=== PATIENT | female | born 1960 | race Caucasian/White ===

== ENCOUNTER 2022-11-16 15:49 | Outpatient (CLI) | payer BC, SELFPAY ==
--- NOTE | 2022-11-16 16:03 | XR_ITS ---
WS: [id number] XR knee RT 3V* [id number] REASON FOR EXAM: PAIN IN RIGHT KNEE FINDINGS: No fracture. 2 areas of focal lucency in the subarticular femur near the midline. These are felt to b e cystic areas i.e. geodes, a secondary to degenerative change. Mild narrowing of the medial knee joint space with mild subchondral sclerosis and small osteophytosis . Lateral knee joint spaces intact and relatively well-preserved. The patellofemoral joint space is intact and appears somewhat narrowed. There is moderate subchondral sclerosis and moderate osteophytosis of the patella. Equivocal findings for joint effusion. XR/XR knee RT 3V* [id number] IMPRESSION: Mild to moderate osteoarthritis of the right knee as above.
--- NOTE | 2022-11-16 16:03 | XR_ITS ---
WS: [id number] XR knee LT 3V* [id number] REASON FOR EXAM: PAIN IN RIGHT KNEE FINDINGS: Possible small knee joint effusion. There is mild narrowing of the medial knee joint space with mild subchondral sclerosis and mild osteo phytosis. Lateral knee joint space is intact and well preserved. Patellofemoral joint space is intact. Moderate subchondral sclerosis and osteophytosis of the patella . XR/XR knee LT 3V* [id number] IMPRESSION: Mild/moderate osteoarthritis of the left knee.
== END 2022-11-16 15:50 | disposition home or self-care (01) ==
PROVIDERS: PCP Family Medicine; Visit Provider Family Medicine
DX: M25.561 Pain in right knee (principal); M17.0 Bilateral primary osteoarthritis of knee
CPT/HCPCS: 73562

== ENCOUNTER 2022-12-13 12:55 | Outpatient (CLI) | payer BC, SELFPAY ==
--- NOTE | 2022-12-13 13:03 | MM_ITS ---
WS: [id number] BILATERAL 3D TOMOSYNTHESIS DIGITAL SCREENING MAMMOGRAPHY WITH CAD CLINICAL INFORMATION: SCREENING HISTORY: Screening mammogram. No current complaints. COMPARISON: 2020 TECHNIQUE: Bilateral CC and MLO views. FINDINGS: Scattered fibroglandular densities bilaterally. No suspicious focal mass, asymmetry, calcifications, or architectural distortion. No evidence of malignancy. Incidental punctate calcifications. MM/[place] [id number] IMPRESSION: BI-RADS: 2-Benign FOLLOW UP: 1 Year Follow-up Recommend return to annual screening mammography.
== END 2022-12-13 12:56 | disposition home or self-care (01) ==
LOC: RAD 12:58
PROVIDERS: PCP Family Medicine; Visit Provider Family Medicine
DX: Z12.31 Encounter for screening mammogram for malignant neoplasm of breast (principal)
CPT/HCPCS: 77063; 77067

== ENCOUNTER 2023-02-21 08:32 | Outpatient (RCR) | payer BC, SELFPAY | END 2023-03-15 23:59 | disposition home or self-care (01) | LOC: SPT 08:32 | PROVIDERS: PCP Family Medicine; Visit Provider Family Medicine | DX: M25.561 Pain in right knee (principal) | CPT/HCPCS: 97110; 97161 ==

== ENCOUNTER 2023-03-16 06:00 | Outpatient (RCR) | payer BC, SELFPAY | END 2023-03-20 23:59 | disposition home or self-care (01) | LOC: SPT 06:00 | PROVIDERS: PCP Family Medicine; Visit Provider Family Medicine | DX: M25.561 Pain in right knee (principal) | CPT/HCPCS: 97110 ==

== ENCOUNTER 2023-12-24 10:06 | Outpatient (CLI) | payer BC, SELFPAY ==
--- NOTE | 2023-12-24 10:13 | MM_ITS ---
WS: [id number] BILATERAL SCREENING DIGITAL TOMOSYNTHESIS MAMMOGRAM WITH CAD HISTORY: SCREENING COMPARISON: 12/13/2022, 06/14/2021 Bilateral CC and MLO views with tomosynthesis and synthetic mammography submitted. Computer aided det ection analyzed. Breast composition: There are scattered areas of fibroglandular density. No suspicious masses, microc alcifications or architectural distortion. Benign calcification in the central RIGHT breast. MM/[place] [id number] IMPRESSION: BI-RADS: 2-Benign FOLLOW UP: 1 Year Follow-up
== END 2023-12-24 10:07 | disposition home or self-care (01) ==
LOC: RAD 10:06
PROVIDERS: PCP Family Medicine; Visit Provider Family Medicine
DX: Z12.31 Encounter for screening mammogram for malignant neoplasm of breast (principal); R92.323 Mammographic fibroglandular density, bilateral breasts; R92.1 Mammographic calcification found on diagnostic imaging of breast
CPT/HCPCS: 77063; 77067

== ENCOUNTER 2024-01-24 07:57 | Outpatient (CLI) | payer BC, SELFPAY ==
--- NOTE | 2024-01-24 08:19 | NM_ITS ---
WS: [email or web address] EXAMINATION: NM parathyroid 16034 ORDER DATE: 01/24/2024 8:10 AM COMPARISON: None HISTORY: HYPERPARATHYROIDISM TECHNIQUE: Parathyroid scintigraphy with 18.2 mCi of technetium 99m administered. AP and oblique view s obtained with and without chin and suprasternal notch markers. Initial and 2 hour delayed imaging a cquired. FINDINGS: Normal homogeneous thyroid and submandibular uptake on the initial imaging. Normal thyroid washout on the delayed imaging. No suspicious foci of retained activity to indicate parathyroid adenoma. No oth er suspicious findings. NM/NM parathyroid 41040 IMPRESSION: 1. No evidence of parathyroid adenoma
== END 2024-01-24 07:58 | disposition home or self-care (01) ==
PROVIDERS: PCP Family Medicine; Visit Provider Family Medicine
DX: E21.3 Hyperparathyroidism, unspecified (principal)
CPT/HCPCS: 78070; A9500

== ENCOUNTER 2024-03-04 08:21 | Day surgery (SDC) | payer BC, SELFPAY ==
[2024-03-04 08:38] VITALS: BP 146/100; PULSE 78; RESP 18; TEMP 36.8; O2SAT 95; BMI 31.8
--- NOTE | 2024-03-04 08:46 | P.HPUD_ITS ---
Surgery/Procedure H&P Update DATE OF PROCEDURE: March 04, 2024 DATE H&P PERFORMED: 02/22/24 H&P UPDATE INFORMATION: I have reviewed H&P completed within last 30 days, I have examined patient prior to procedure, No changes to prior documentation and H&P is in [facility] E[place] on date indicated PLANNED PROCEDURE: Operation Date: 03/04/24 09:20 Proposed Procedures p Colonoscopy 90439, G0121, Z12.11(Not Applicable) - Reinier Hartmann MD
--- NOTE | 2024-03-04 08:46 | W.PM.OPSUD ---
Surgery/Procedure H&P Update DATE OF PROCEDURE: March 04, 2024 DATE H&P PERFORMED: 02/22/24 H&P UPDATE INFORMATION: I have reviewed H&P completed within last 30 days, I have examined patient prior to procedure, No changes to prior documentation and H&P is in [facility] EMR on date indicated PLANNED PROCEDURE: Operation Date: 03/04/24 09:20 Proposed Procedures p Colonoscopy 05251, G0121, Z12.11(Not Applicable) - Reinier Hartmann MD
[2024-03-04] MEDS: sodium chloride 0.9% 1,000 ML 30 ML IV (08:50)
--- NOTE | 2024-03-04 09:02 | ANES.PREANE2 ---
Pre-Anesthetic Assessment Height/Weight: Height 1.6 m Weight 81.647 kg Temp Pulse Resp BP Pulse Ox O2 Del Method 98.2 F 78 18 146/100 95 Room Air 03/04/24 08:38 03/04/24 08:38 03/04/24 08:38 03/04/24 08:38 03/04/24 08:38 03/04/24 08:38 Operation Date: 03/04/24 09:20 Proposed Procedures p Colonoscopy 15936, G0121, Z12.11(Not Applicable) - Reinier Hartmann MD Familial anesthetic complications: None Was Beta Aubrey taken within 24 hours: N/A Was Clonidine taken within 24 hours: N/A Last intake: Intake Last Liquid Date 03/04/24 Last Liquid Time 00:05 Last Solid Date 03/02/24 Last Solid Time 23:30 Social No alcohol and No tobacco Exam alert, oriented x 3, clear to auscultation bilaterally and regular rate & rhythm Airway Mallampati: Class I Dentition: full CV/HEM Hypertension GI Gastroesophageal Reflux Disease Anesthetic Plan ASA status: 2 Anesthesia: MAC Risk of > 500 ml blood loss (7ml/kg in children): No Medications/Allergies Home Medications Medication Instructions Recorded Confirmed Last Taken Type apple cider vinegar 300 mg tablet 300 mg PO DAILY 02/22/24 03/04/24 03/03/24 History ascorbic acid (vitamin C) 1,000 mg 1 g PO DAILY 02/22/24 03/04/24 03/03/24 History capsule multivitamin 1 tab PO DAILY 02/22/24 03/04/24 03/03/24 History omeprazole 20 mg capsule,delayed 20 mg PO DAILY 02/22/24 03/04/24 03/03/24 History release triamterene 37.5 1 tab PO DAILY 02/22/24 03/04/24 03/03/24 History mg-hydrochlorothiazide 25 mg tablet Allergies Allergy/AdvReac Type Severity Reaction Status Date / Time hydrocodone Allergy Unknown Verified 03/04/24 08:36 morphine Allergy ADR-Halluci Verified 03/04/24 08:36 nating guaiacsulfonate Allergy ADR-Halluci Uncoded 03/04/24 08:36 nating Current Medications Generic Name Dose Route Start Last Admin Trade Name Freq PRN Reason Stop Dose Admin Sodium Chloride 1,000 mls @ 30 mls/hr 03/04/24 08:30 03/04/24 08:50 Sodium Chloride 0.9% IV 30 mls/hr .Q24H RADHA Administration PFSH Anesthesia Social History (Updated 02/22/24 @ 09:26 by AMANDA Sue) Smoking and tobacco/nicotine status: never used tobacco/nicotine Alcohol intake: never Data Anesthesia Cardiac Studies: No Data to Display
[2024-03-04 09:57] VITALS: BP 139/79; PULSE 67; RESP 18; TEMP 36.2; O2SAT 96
[2024-03-04 10:08] VITALS: BP 128/80; PULSE 68; RESP 18; O2SAT 98
[2024-03-04 10:20] VITALS: BP 144/85; PULSE 65; RESP 18; O2SAT 100
--- NOTE | 2024-03-04 10:46 | ANE.PACU2 ---
Inpatient post-anesthesia follow up: Airway intact: Yes Vital signs: Temperature 97.2 F Pulse Rate 65 Respiratory Rate 18 Blood Pressure 144/85 Pulse Oximetry 100 Oxygen Delivery Me thod Room Air Oxygen Flow Rate Fraction of Inspir ed Oxygen Hydration adequate: Yes Nausea and vomiting: No Pain level: 1 Mental status: Baseline
== END 2024-03-04 10:46 | disposition home or self-care (01) ==
PROVIDERS: PCP Family Medicine; Visit Provider Surgery
PROC: 0DJD8ZZ Inspection of Lower Intestinal Tract, Via Natural or Artificial Opening Endoscopic (ICD-10-PCS; CPT 45378; principal; 2024-03-04 09:20)
DX: Z12.11 Encounter for screening for malignant neoplasm of colon (principal); D12.5 Benign neoplasm of sigmoid colon; I10 Essential (primary) hypertension; K21.9 Gastro-esophageal reflux disease without esophagitis
CPT/HCPCS: 45380; 45385; 88305; J2704; J7030

== ENCOUNTER 2024-12-15 04:18 | Emergency (ER) | payer BC, SELFPAY ==
[2024-12-15 04:27] VITALS: BP 171/88; PULSE 77; RESP 16; TEMP 36.3; O2SAT 97; BMI 33.3
--- NOTE | 2024-12-15 05:06 | XRR_ITS ---
PROCEDURE INFORMATION: Exam: XR Chest Exam date and time: 12/15/2024 5:06 AM Age: 64 years old Clinical indication: Chest pressure; C/O chest pain; Additional info: Cp TECHNIQUE: Imaging protocol: Radiologic exam of the chest. Views: 1 view. COMPARISON: NM parathyroid [id number] 01/24/2024 8:19 AM FINDINGS: Lungs: Unremarkable. No consolidation. Pleural spaces: Unremarkable. No pleural effusion. No pneumothorax. Heart/Mediastinum: The heart is borderline enlarged. There is calcified plaque involving the aorta. Bones/joints: Unremarkable. XR/XR chest 1V portable [id number] IMPRESSION: 1. Borderline cardiomegaly.
[2024-12-15 05:14] LABS: Basophils # 0.1 10^3/uL (0.0-0.1); Basophils % 0.8 %; Eosinophils # 0.1 10^3/uL (0.0-0.8); Eosinophils % 1.5 %; Hematocrit 43.3 % (36-47); Lymphocytes # 1.4 10^3/uL (0.8-4.8); Lymphocytes % 21.4 %; Mean Corpuscular HGB Conc 34.6 g/dL (30-55); Mean Corpuscular Hemoglobin 28.4 pg (27-33); Mean Corpuscular Volume 81.9 fl (85-98); Mean Platelet Volume 10.1 fL (7.4-10.4); Monocytes # 0.6 10^3/uL (0.2-0.9); Monocytes % 8.9 %; Neutrophils # 4.46 10^3/uL (1.8-7.7); Neutrophils % 67.1 %; Nucleated Red Blood Cells % 0 %; Platelet Count 217 10^3/cmm (157-399); Red Blood Count 5.29 10^6/uL (3.85-5.65); Red Cell Distribution Width 13.9 % (12.1-15.1); White Blood Count 6.64 10^3/uL (3.29-11.43)
--- NOTE | 2024-12-15 05:20 | W.ED.BACK ---
Documented by User: Andrea Jose DO 12/18/24 08:34 HPI - Back Pain/Injury General: Chief Complaint: Back Pain/Injury Stated Complaint: Lower back Pain to Front Time Seen by Provider: 12/15/24 04:52 History of Present Illness: 64-year-old female with no prior history of coronary disease. She complains mainly of right sided mid back pain that wraps around to the front. It has spread to the left to some degree, but worse on the right. She was seen in the clinic 2 days ago, diagnosed with a muscle strain, and told to get topical patches which have not helped. She was not able to sleep last night. She has been nauseated. Not short of breath. No fever. No vomiting or diarrhea. Only surgical history is oophorectomy. No history of cholecystectomy, etc. No history of heart disease. Related Data Home Medications ?Medication ?Instructions ?Recorded ?Confirmed apple cider vinegar 300 mg tablet 300 mg PO DAILY 02/22/24 12/15/24 ascorbic acid (vitamin C) 1,000 mg 1 g PO DAILY 02/22/24 12/15/24 capsule multivitamin 1 tab PO DAILY 02/22/24 12/15/24 omeprazole 20 mg capsule,delayed 20 mg PO DAILY 02/22/24 12/15/24 release triamterene 37.5 1 tab PO DAILY 02/22/24 12/15/24 mg-hydrochlorothiazide 25 mg tablet prednisone 10 mg tablet See Rx Instructions .Route .COMPLEX 12/15/24 12/15/24 Previous Rx's ?Medication ?Instructions ?Recorded cyclobenzaprine 10 mg tablet 10 mg PO Q8H #10 tabs 12/15/24 ketorolac 10 mg tablet 10 mg PO TID PRN pain #10 tabs 12/15/24 Allergies Allergy/AdvReac Type Severity Reaction Status Date / Time hydrocodone Allergy Unknown Verified 04/02/24 09:24 morphine Allergy ADR-Halluci Verified 04/02/24 09:24 natvanessa guaiacsulfonate Allergy ADR-Halluci Uncoded 04/02/24 09:24 rosie [facility] ED PFSH: Social History Smoking and tobacco/nicotine status: never used tobacco/nicotine Alcohol intake: never Physical Exam Const: COMMON NORMALS: no acute distress GENERAL APPEARANCE: cooperative; not ill appearing and not frail appearing HENMT: COMMON NORMALS: normocephalic, atraumatic and Normal external nose present HEAD & SCALP: normocephalic and atraumatic FACE & SINUS: normal facial exam and face symmetric NOSE: Normal external nose present Eye: COMMON NORMALS: Equal, round and reactive pupils present and EOMs intact bilaterally PUPIL: Yes Equal, round and reactive pupils present Neck/C-Spine: GENERAL: Yes trachea midline Chest: CHEST: Yes Symmetrical chest wall rise Resp: COMMON NORMALS: normal respiratory effort, No retractions, No use of accessory muscles and clear to auscultation bilaterally AUSCULTATION: clear to auscultation bilaterally Cardio: COMMON NORMALS: regular rate and regular rhythm RATE: regular rate RHYTHM: regular rhythm GI: COMMON NORMALS: Normal to inspection, nondistended, normoactive bowel sounds present Extremity: COMMON NORMALS: no pedal edema Neuro: NATASHA COMA SCALE: document GCS findings [place] coma scale eye opening: Spontaneous [place] coma scale verbal response: Orientated Natasha coma scale motor response: Obey commands [place] coma scale total score: 15 SENSORY EXAM: Yes extremities (intact) Psych: COMMON NORMALS: speech normal SPEECH: Yes normal speech Skin: COMMON NORMALS: no rashes or lesions noted GENERAL SKIN EXAM: no rashes or lesions noted Course Vital Signs: Vital signs: Vital Signs Temperature 97.4 F L 12/15/24 04:27 Pulse Rate 76 12/15/24 08:36 Respiratory Rate 16 12/15/24 05:22 Blood Pressure 168/86 12/15/24 08:36 Pulse Oximetry 97 12/15/24 08:36 Oxygen Delivery Me thod Room Air 12/15/24 04:27 MDM - Back Pain/Injury Medical Decision Making Pain not fully reproducible on exam. She is nontachycardic, nonhypoxic. CBC is normal. Potassium is 3.1. Lipase is normal at 35. CRP is only 3.8. Liver enzymes are normal. Potassium is repleted. Ultrasound of the gallbladder is ordered, and shows some gallbladder sludge, with normal bile ducts, no stones, and no signs of cholecystitis. Pain is improved after administration of small dose of fentanyl, and Zofran. Urinalysis is pending. If urinalysis is negative, she will be treated for musculoskeletal pain. To return for any worsening symptoms. Labs 12/15/24 05:06 12/15/24 05:06 Radiology Impressions Chest X-Ray 12/15/24 05:06 IMPRESSION: 1. Borderline cardiomegaly. Gallbladder Ultrasound 12/15/24 05:33 IMPRESSION: 1. Possible minimal sludge layering within the gallbladder. Laboratory Results WBC 6.64 10^3/uL (3.29-11.43) 12/15/24 05:06 RBC 5.29 10^6/uL (3.85-5.65) 12/15/24 05:06 Hgb 15.00 g/dL (11.27-16.99) 12/15/24 05:06 Hct 43.3 % (36-47) 12/15/24 05:06 MCV 81.9 fl (85-98) L 12/15/24 05:06 MCH 28.4 pg (27-33) 12/15/24 05:06 MCHC 34.6 g/dL (30-55) 12/15/24 05:06 RDW 13.9 % (12.1-15.1) 12/15/24 05:06 Plt Count 217 10^3/cmm (157-399) 12/15/24 05:06 MPV 10.1 fL (7.4-10.4) 12/15/24 05:06 Neut % (Auto) 67.1 % 12/15/24 05:06 Lymph % (Auto) 21.4 % 12/15/24 05:06 [place] % (Auto) 8.9 % 12/15/24 05:06 Eos % (Auto) 1.5 % 12/15/24 05:06 Baso % (Auto) 0.8 % 12/15/24 05:06 Neut # (Auto) 4.46 10^3/uL (1.8-7.7) 12/15/24 05:06 Lymph # (Auto) 1.4 10^3/uL (0.8-4.8) 12/15/24 05:06 [place] # (Auto) 0.6 10^3/uL (0.2-0.9) 12/15/24 05:06 Eos # (Auto) 0.1 10^3/uL (0.0-0.8) 12/15/24 05:06 Baso # (Auto) 0.1 10^3/uL (0.0-0.1) 12/15/24 05:06 Nucleated RBC % (auto) 0 % 12/15/24 05:06 Nucleated RBCs # 0.0 /100WBC 12/15/24 05:06 Sodium 129 mmol/L (136-145) L 12/15/24 05:06 Potassium 3.1 mmol/L (3.5-5.1) L 12/15/24 05:06 Chloride 91 mmol/L (98-107) L 12/15/24 05:06 Carbon Dioxide 26 mmol/L (22-29) 12/15/24 05:06 Anion Gap 15.1 (5-19) 12/15/24 05:06 BUN 12 mg/dL (8-23) 12/15/24 05:06 Creatinine 0.5 mg/dL (0.5-0.9) 12/15/24 05:06 GFR Calculation 124.2 mL/min (90-130) 12/15/24 05:06 Glucose 100 mg/dL (65-115) 12/15/24 05:06 Calculated Osmolality 268 mOsm/kg (285-295) L 12/15/24 05:06 Calcium 10.1 mg/dL (8.5-10.5) 12/15/24 05:06 Total Bilirubin 0.6 mg/dL (0.15-1.2) 12/15/24 05:06 AST 25 U/L (0-32) 12/15/24 05:06 ALT 26 U/L (0-33) 12/15/24 05:06 Alkaline Phosphatase 99 U/L (35-105) 12/15/24 05:06 Troponin T Baseline 7 ng/L (0-10) 12/15/24 05:06 Troponin T 120 Minute 11.53 ng/L (0-10) H 12/15/24 06:58 Delta Troponin T 4.53 ABS# (0-10) 12/15/24 06:58 C-Reactive Protein 3.8 mg/L (0.0-4.9) 12/15/24 05:06 Total Protein 7.2 g/dL (6.6-8.7) 12/15/24 05:06 Albumin 4.6 g/dL (3.5-5.2) 12/15/24 05:06 Globulin 2.6 g/dL (1.3-4.6) 12/15/24 05:06 Lipase 35 U/L (13-60) 12/15/24 05:06 Urine Color Yellow (Yellow) 12/15/24 07:05 Urine Appearance Clear (CLEAR) 12/15/24 07:05 Urine pH 6.5 (5-7) 12/15/24 07:05 Ur Specific [place] 1.016 (1.005-1.030) 12/15/24 07:05 Urine Protein Negative (Negative) 12/15/24 07:05 Urine Glucose (UA) Negative (Normal) 12/15/24 07:05 Urine Ketones 2+ (Negative) H 12/15/24 07:05 Urine Blood Negative (Negative) 12/15/24 07:05 Urine Nitrate Negative (Negative) 12/15/24 07:05 Urine Bilirubin Negative (Negative) 12/15/24 07:05 Urine Urobilinogen 0.2 mg/dL (Negative) 12/15/24 07:05 Ur Leukocyte Esterase Negative (Negative) 12/15/24 07:05 Urine RBC 0-2 /hpf (0-2) 12/15/24 07:05 Urine WBC 0-5 /hpf (0-5) 12/15/24 07:05 Ur Squamous Epith Cells 0-5 /hpf (0-5) 12/15/24 07:05 Amorphous Sediment Not Reportable 12/15/24 07:05 Urine Bacteria None seen /hpf (NONE) 12/15/24 07:05 Hyaline Casts 1.21 /lpf 12/15/24 07:05 All radiology interpretation(s) finalized by discharge Discharge Plan Discharge Patient Disposition: Home Clinical Impression: Thoracic back pain, Acute right flank pain Condition: Stable Prescriptions: New ketorolac 10 mg tablet 10 mg PO TID PRN (Reason: pain) Qty: 10 0RF cyclobenzaprine 10 mg tablet 10 mg PO Q8H Qty: 10 0RF No Action triamterene-hydrochlorothiazid 37.5-25 mg tablet 1 tab PO DAILY omeprazole 20 mg capsule,delayed release(DR/EC) 20 mg PO DAILY ascorbic acid (vitamin C) 1,000 mg capsule 1 g PO DAILY multivitamin Tablet 1 tab PO DAILY apple cider vinegar 300 mg tablet 300 mg PO DAILY prednisone 10 mg tablet See Rx Instructions .ROUTE .COMPLEX Rx Instructions: TAKE 2 TABLETS BY MOUTH ONCE DAILY FOR 4 DAYS AND 1 ONCE DAILY FOR 4 DAYS. Discharge Orders: Discharge ED (Routine); Ordered 12/15/24 Ordered By: Burt Winston Patient Instructions: Renal Colic (ED), Opioid Safety, Pain Management Activity Restrictions/Additional Instructions: Return for worsening pain despite treatment, fever greater than 100, vomiting liquids or medications, worsening shortness of breath, any other concerning symptoms. Call your doctor later today for follow-up appointment. Print Language: Togolese Sign Out Sign Out Data: Patient Sign Out occurred on 12/15/24 at 06:32. Patient's care was discussed, and care was transferred from Andrea Jose DO to Burt Wniston DO. Coding Level of Care Code ED [employer] Field Technician for Chg Fwd Documented by User: Burt Winston DO 12/15/24 09:09 HPI - Back Pain/Injury General: Chief Complaint: Back Pain/Injury Stated Complaint: Lower back Pain to Front Time Seen by Provider: 12/15/24 04:52 Related Data Home Medications ?Medication ?Instructions ?Recorded ?Confirmed apple cider vinegar 300 mg tablet 300 mg PO DAILY 02/22/24 12/15/24 ascorbic acid (vitamin C) 1,000 mg 1 g PO DAILY 02/22/24 12/15/24 capsule multivitamin 1 tab PO DAILY 02/22/24 12/15/24 omeprazole 20 mg capsule,delayed 20 mg PO DAILY 02/22/24 12/15/24 release triamterene 37.5 1 tab PO DAILY 02/22/24 12/15/24 mg-hydrochlorothiazide 25 mg tablet prednisone 10 mg tablet See Rx Instructions .Route .COMPLEX 12/15/24 12/15/24 Previous Rx's ?Medication ?Instructions ?Recorded cyclobenzaprine 10 mg tablet 10 mg PO Q8H #10 tabs 12/15/24 ketorolac 10 mg tablet 10 mg PO TID PRN pain #10 tabs 12/15/24 Allergies Allergy/AdvReac Type Severity Reaction Status Date / Time hydrocodone Allergy Unknown Verified 04/02/24 09:24 morphine Allergy ADR-Halluci Verified 04/02/24 09:24 nating guaiacsulfonate Allergy ADR-Halluci Uncoded 04/02/24 09:24 nating [facility] ED PFSH: Social History Smoking and tobacco/nicotine status: never used tobacco/nicotine Alcohol intake: never Physical Exam Neuro: NATASHA COMA SCALE: document GCS findings [place] coma scale total score: 15 Course Vital Signs: Vital signs: Vital Signs Temperature 97.4 F L 12/15/24 04:27 Pulse Rate 76 12/15/24 08:36 Respiratory Rate 16 12/15/24 05:22 Blood Pressure 168/86 12/15/24 08:36 Pulse Oximetry 97 12/15/24 08:36 Oxygen Delivery Me thod Room Air 12/15/24 04:27 MDM - Back Pain/Injury Medical Decision Making Pain not fully reproducible on exam. She is nontachycardic, nonhypoxic. CBC is normal. Potassium is 3.1. Lipase is normal at 35. CRP is only 3.8. Liver enzymes are normal. Potassium is repleted. Ultrasound of the gallbladder is ordered, and shows some gallbladder sludge, with normal bile ducts, no stones, and no signs of cholecystitis. Pain is improved after administration of small dose of fentanyl, and Zofran. Urinalysis is pending. If urinalysis is negative, she will be treated for musculoskeletal pain. To return for any worsening symptoms. Care assumed at change of shift patient's UA is unremarkable discharge patient home return if has further problems. Labs 12/15/24 05:06 12/15/24 05:06 Radiology Impressions Chest X-Ray 12/15/24 05:06 IMPRESSION: 1. Borderline cardiomegaly. Gallbladder Ultrasound 12/15/24 05:33 IMPRESSION: 1. Possible minimal sludge layering within the gallbladder. Laboratory Results WBC 6.64 10^3/uL (3.29-11.43) 12/15/24 05:06 RBC 5.29 10^6/uL (3.85-5.65) 12/15/24 05:06 Hgb 15.00 g/dL (11.27-16.99) 12/15/24 05:06 Hct 43.3 % (36-47) 12/15/24 05:06 MCV 81.9 fl (85-98) L 12/15/24 05:06 MCH 28.4 pg (27-33) 12/15/24 05:06 MCHC 34.6 g/dL (30-55) 12/15/24 05:06 RDW 13.9 % (12.1-15.1) 12/15/24 05:06 Plt Count 217 10^3/cmm (157-399) 12/15/24 05:06 MPV 10.1 fL (7.4-10.4) 12/15/24 05:06 Neut % (Auto) 67.1 % 12/15/24 05:06 Lymph % (Auto) 21.4 % 12/15/24 05:06 [place] % (Auto) 8.9 % 12/15/24 05:06 Eos % (Auto) 1.5 % 12/15/24 05:06 Baso % (Auto) 0.8 % 12/15/24 05:06 Neut # (Auto) 4.46 10^3/uL (1.8-7.7) 12/15/24 05:06 Lymph # (Auto) 1.4 10^3/uL (0.8-4.8) 12/15/24 05:06 [place] # (Auto) 0.6 10^3/uL (0.2-0.9) 12/15/24 05:06 Eos # (Auto) 0.1 10^3/uL (0.0-0.8) 12/15/24 05:06 Baso # (Auto) 0.1 10^3/uL (0.0-0.1) 12/15/24 05:06 Nucleated RBC % (auto) 0 % 12/15/24 05:06 Nucleated RBCs # 0.0 /100WBC 12/15/24 05:06 Sodium 129 mmol/L (136-145) L 12/15/24 05:06 Potassium 3.1 mmol/L (3.5-5.1) L 12/15/24 05:06 Chloride 91 mmol/L (98-107) L 12/15/24 05:06 Carbon Dioxide 26 mmol/L (22-29) 12/15/24 05:06 Anion Gap 15.1 (5-19) 12/15/24 05:06 BUN 12 mg/dL (8-23) 12/15/24 05:06 Creatinine 0.5 mg/dL (0.5-0.9) 12/15/24 05:06 GFR Calculation 124.2 mL/min (90-130) 12/15/24 05:06 Glucose 100 mg/dL (65-115) 12/15/24 05:06 Calculated Osmolality 268 mOsm/kg (285-295) L 12/15/24 05:06 Calcium 10.1 mg/dL (8.5-10.5) 12/15/24 05:06 Total Bilirubin 0.6 mg/dL (0.15-1.2) 12/15/24 05:06 AST 25 U/L (0-32) 12/15/24 05:06 ALT 26 U/L (0-33) 12/15/24 05:06 Alkaline Phosphatase 99 U/L (35-105) 12/15/24 05:06 Troponin T Baseline 7 ng/L (0-10) 12/15/24 05:06 Troponin T 120 Minute 11.53 ng/L (0-10) H 12/15/24 06:58 Delta Troponin T 4.53 ABS# (0-10) 12/15/24 06:58 C-Reactive Protein 3.8 mg/L (0.0-4.9) 12/15/24 05:06 Total Protein 7.2 g/dL (6.6-8.7) 12/15/24 05:06 Albumin 4.6 g/dL (3.5-5.2) 12/15/24 05:06 Globulin 2.6 g/dL (1.3-4.6) 12/15/24 05:06 Lipase 35 U/L (13-60) 12/15/24 05:06 Urine Color Yellow (Yellow) 12/15/24 07:05 Urine Appearance Clear (CLEAR) 12/15/24 07:05 Urine pH 6.5 (5-7) 12/15/24 07:05 Ur Specific [place] 1.016 (1.005-1.030) 12/15/24 07:05 Urine Protein Negative (Negative) 12/15/24 07:05 Urine Glucose (UA) Negative (Normal) 12/15/24 07:05 Urine Ketones 2+ (Negative) H 12/15/24 07:05 Urine Blood Negative (Negative) 12/15/24 07:05 Urine Nitrate Negative (Negative) 12/15/24 07:05 Urine Bilirubin Negative (Negative) 12/15/24 07:05 Urine Urobilinogen 0.2 mg/dL (Negative) 12/15/24 07:05 Ur Leukocyte Esterase Negative (Negative) 12/15/24 07:05 Urine RBC 0-2 /hpf (0-2) 12/15/24 07:05 Urine WBC 0-5 /hpf (0-5) 12/15/24 07:05 Ur Squamous Epith Cells 0-5 /hpf (0-5) 12/15/24 07:05 Amorphous Sediment Not Reportable 12/15/24 07:05 Urine Bacteria None seen /hpf (NONE) 12/15/24 07:05 Hyaline Casts 1.21 /lpf 12/15/24 07:05 Discharge Plan Discharge Patient Disposition: Home Clinical Impression: Thoracic back pain, Acute right flank pain Condition: Stable Prescriptions: New ketorolac 10 mg tablet 10 mg PO TID PRN (Reason: pain) Qty: 10 0RF cyclobenzaprine 10 mg tablet 10 mg PO Q8H Qty: 10 0RF No Action triamterene-hydrochlorothiazid 37.5-25 mg tablet 1 tab PO DAILY omeprazole 20 mg capsule,delayed release(DR/EC) 20 mg PO DAILY ascorbic acid (vitamin C) 1,000 mg capsule 1 g PO DAILY multivitamin Tablet 1 tab PO DAILY apple cider vinegar 300 mg tablet 300 mg PO DAILY prednisone 10 mg tablet See Rx Instructions .ROUTE .COMPLEX Rx Instructions: TAKE 2 TABLETS BY MOUTH ONCE DAILY FOR 4 DAYS AND 1 ONCE DAILY FOR 4 DAYS. Discharge Orders: Discharge ED (Routine); Ordered 12/15/24 Ordered By: Burt Winston Patient Instructions: Renal Colic (ED), Opioid Safety, Pain Management Activity Restrictions/Additional Instructions: Return for worsening pain despite treatment, fever greater than 100, vomiting liquids or medications, worsening shortness of breath, any other concerning symptoms. Call your doctor later today for follow-up appointment. Print Language: Togolese Sign Out Sign Out Data: Patient Sign Out occurred on 12/15/24 at 06:32. Patient's care was discussed, and care was transferred from Andrea Jose DO to Burt Winston DO. Coding Level of Care Code ED [employer] Field Technician for Leila Dye
--- NOTE | 2024-12-15 05:21 | ECG_ITS ---
[facility] Test Date: 2024-12-15 Pat Name: Padma Arriaga Department: Room: Gender: Female Transmission And Coordination Engineer: : 1960 Requested By: Andrea Rangel Order Number: [id number] Marcos MD: Erick Schneider M.D. Measurements Intervals [place] Rate: 70 P: 39 IA: 193 QRS: -23 QRSD: 114 T: 30 QT: 407 QTc: 441 Interpretive Statements SINUS RHYTHM BORDERLINE LEFT AXIS DEVIATION [QRS AXIS < -20] LOW QRS VOLTAGE IN PRECORDIAL LEADS [QRS DEFLECTION < 1.0 mV IN CHEST LEADS] INCOMPLETE RIGHT BUNDLE BRANCH BLOCK [90+ ms QRS DURATION, TERMINAL R IN V1/V2, 40+ ms S IN I/aVL/V4/V5/V6] LEFT VENTRICULAR HYPERTROPHY AND ST-T CHANGE [VOLTAGE CRITERIA PLUS ST/T ABNORMALITY] No previous ECG available for comparison Electronically Signed On 12-16-2024 11:38:13 CDT by Erick Schneider M.D. [email or web address]
[2024-12-15 05:22] VITALS: RESP 16
[2024-12-15] MEDS: fentaNYL 50 mcg/mL INJ 2mL IVP (05:22)
[2024-12-15] MEDS: ondansetron 2 mg/ML SDV 2 mL 4 MG IVP (05:23)
--- NOTE | 2024-12-15 05:33 | USR_ITS ---
PROCEDURE INFORMATION: Exam: US Abdomen, Limited; Right Upper Quadrant Exam date and time: 12/15/2024 5:53 AM Age: 64 years old Clinical indication: Abdominal pain; Additional info: Ruq pain and back pain TECHNIQUE: Imaging protocol: Real time ultrasound of the abdomen with image documentation. Limited exam focused on the right upper quadrant. COMPARISON: No relevant prior studies available. FINDINGS: Liver: The liver is echogenic compatible with fatty infiltration. Small echogenic focus noted involving the left lobe of the liver likely represents a granuloma. No intrahepatic biliary ductal dilatation is seen. The portal vein is patent. Gallbladder: There may be minimal sludge layering within the gallbladder. No pericholecystic fluid or gallbladder wall thickening is appreciated. No shadowing stones are noted. Biliary ducts: Normal. No stones. No dilation. The common bile duct measures 3 mm. Pancreas: The pancreatic head and proximal body are normal in echotexture. The distal body and tail are poorly seen secondary to overlying bowel gas. Right kidney: Normal. No mass. No hydronephrosis. The right kidney measures 9.8 cm in length and is normal in echotexture. IVC: Normal Aorta: Normal in caliber. US/US gall bladder [id number] IMPRESSION: 1. Possible minimal sludge layering within the gallbladder.
[2024-12-15 05:38] LABS: Troponin(5th) Baseline 7 ng/L (0-10)
[2024-12-15 05:42] LABS: Alanine Aminotransferase 26 U/L (0-33); Albumin Level 4.6 g/dL (3.5-5.2); Alkaline Phosphatase 99 U/L (35-105); Anion Gap 15.1 (5-19); Aspartate Amino Transferase 25 U/L (0-32); Blood Urea Nitrogen 12 mg/dL (8-23); C Reactive Protein 3.8 mg/L (0.0-4.9); Calcium 10.1 mg/dL (8.5-10.5); Carbon Dioxide 26 mmol/L (22-29); Creatinine Clr Calc Pharmacy 118.6027; Globulin 2.6 g/dL (1.3-4.6); Glomerular Filtration Rate 124.2 mL/min (90-130); Glucose 100 mg/dL (65-115); Lipase 35 U/L (13-60); Total Bilirubin 0.6 mg/dL (0.15-1.2); Total Protein 7.2 g/dL (6.6-8.7)
[2024-12-15 05:53] LABS: Chloride 91 mmol/L (98-107); Osmolality Calculated 268 mOsm/kg (285-295); Potassium 3.1 mmol/L (3.5-5.1); Sodium 129 mmol/L (136-145)
[2024-12-15] MEDS: potassium chloride ER 20 mEq Tablet 40 MEQ PO (06:57)
[2024-12-15 07:20] LABS: Troponin 5 2HR 11.53 ng/L (0-10); Troponin 5 2HR Delta 4.53 ABS# (0-10)
[2024-12-15 08:09] LABS: Bilirubin Urine Negative (Negative); Blood Urine Negative (Negative); Glucose Urine UA Negative (Normal); Ketones Urine 2+ (Negative); Leukocyte Esterase Urine Negative (Negative); Nitrate Urine Negative (Negative); Protein Urine Negative (Negative); Specific Gravity, Urine 1.016 (1.005-1.030); Urine Appearance Clear (CLEAR); Urine Color Yellow (Yellow); Urobilinogen Urine 0.2 mg/dL (Negative); pH Urine 6.5 (5-7)
[2024-12-15 08:12] LABS: Add Urine Microscopic? YES; Bacteria Urine None Seen /hpf; Hyaline Casts Urine 1.21 /lpf; RBC Urine 0-2 /hpf (0-2); Squamous Epithelial Cell Urine 0-5 /hpf (0-5); WBC Urine 0-5 /hpf (0-5)
[2024-12-15 08:36] VITALS: BP 168/86; PULSE 76; O2SAT 97
== END 2024-12-15 08:37 | disposition home or self-care (01) ==
PROVIDERS: Emergency Medicine; Emergency Provider Family Medicine
DX: M54.6 Pain in thoracic spine (principal); R10.9 Unspecified abdominal pain
CPT/HCPCS: 36415; 71045; 76705; 80053; 81001; 83690; 84484; 85025; 86140; 93005; 96374; 96375; 99285; J2405; J3010; J9999

== ENCOUNTER 2025-02-16 22:21 | Emergency (ER) | payer BC, SELFPAY ==
[2025-02-16 22:24] VITALS: BP 169/84; PULSE 84; RESP 16; TEMP 36.4; O2SAT 100; BMI 31.4
--- OUTSIDE RECORDS SUMMARY | 2025-02-16 22:24 | XMS_ITS | Clinical Summary ---
[facility] Organization [facility] Address [address] Stone: [place] [address] Care Team Providers Care Perl Software Engineer Name Role Phone Marysol Alanis MD Primary Care Provider [phone] Allergies No known active allergies Medications MULTIVITAMIN ORAL Take by mouth. 0 Active ascorbic acid/zinc (ZINC WITH VITAMIN C ORAL) Take by mouth. 0 Active ferrous sulfate 134 mg (27 mg iron) Tablet Take 134 mg by mouth. OTC 0 Active acetaminophen (TYLENOL) 325 mg tablet Take 325 mg by mouth every 4 hours as needed. 7 Active omeprazole (PriLOSEC) 40 mg Capsule, Delayed Release(E.C.) Take 1 Capsule (40 mg) by mouth daily. 30 Capsule 2 8 Active fluticasone propionate (FLONASE) 50 mcg/spray [place], Suspension nasal inhalerIndicati ons:Sinus pressure,Rhinor miko Administer 2 Sprays in each nostril daily. 16 Gram 1 7 Active mometasone (ELOCON) 0.1 % Cream Apply to affected area daily. 5 Active triamterene-hyd roCHLOROthiazid e (MAXZIDE 25) 37.5-25 mg tablet Take 1 Tab by mouth daily. 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[employer] Gender Identity Not on file Sexual Orientation Not on file Last Filed Vital Signs Vital Sign Reading Time Taken Comments Blood Pressure 152/74 02/26/2022 12:20 PM CDT Pulse 82 02/26/2022 12:20 PM CDT Temperature 36.8 C (98.2 F) 02/26/2022 12:20 PM CDT Respiratory Rate 20 02/26/2022 12:20 PM CDT Oxygen Saturation 99% 02/26/2022 12:20 PM CDT Inhaled Oxygen Concentration - - Weight 81.6 kg (180 lb) 02/26/2022 12:20 PM CDT Height 160 cm (5' 3 ) 02/26/2022 12:20 PM CDT Body Mass Index 31.89 02/26/2022 12:20 PM CDT Plan of Treatment Health Maintenance Due Date Last Done Comments HPV/Cotest (21-29) 1981 CERVICAL CANCER SCREENING 1990 HPV/Cotest (30-65) 1990 PAP SMEAR 1990 COLORECTAL SCREENING 2005 Colorectal Cancer Screening 2005 FIT-DNA Q 3 years 2005 FIT/FOBT Q 1 year 2005 Flex Sig/CT Colonography Q 5 years 2005 ZOSTER VACCINE (1 of 2) 2010 BREAST CANCER SCREENING 06/14/2022 06/14/20 21, 05/11/2020, 05/11/2020, Additional history exists DTAP/TDAP/TD VACCINES (3 - T d or Tdap) 04/15/2024 04/15/2014, 04/19/2007 INFLUENZA VACCINE (#1) 2025 , 05/05/2014, 04/15/2014, Additional history exists RSV VACCINE (60+ or ) (1 - 1-dose 75+ series) 2035 Procedures Procedure Name Priority Date/Time Associated Diagnosis Comments MAMMO 3D EDWARD SCREEN BILAT W OR WO CAD Routine 06/14/2021 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 for screening mammogram from Last 3 Months or Most Recently Relevant to Health Maintenance Results * MAMMO SCRN BILAT 3D EDWARD W OR WO CAD (06/14/2021 10:49 AM TITLE ONE READING TEACHER) Anatomical Region Laterality Modality Breast Bilateral Mammography Narrative 06/23/2021 3:59 PM TITLE ONE READING TEACHER Bilateral Digital Mammogram with CAD and 3D Tomography Reason for Exam: Screening Comparison: Compared to: 05/11/2020 MAMMO SCRN BILAT 3D EDWARD W OR WO CAD, 04/14/2019 MAMMO SCRN BILAT 3D EDWARD W OR WO CAD, and 02/04/2018 MAMMO SCRN BILAT 3D EDWARD W OR WO CAD Technique: 3D MLO and CC digital tomosynthesis images were acquired and synthesized 2D images (C view) were generated. This digital mammogram was also analyzed by the Computer Aided Detection System CAD). Breast Composition: There are scattered areas of fibroglandular density. There are no suspicious masses, areas of architectural distortions, or microcalcifications to suggest malignancy. No significant new findings since the prior mammogram(s). us Marysol Alanis MD MAMMO ORDERABLES Final Res ult from Last 3 Months or Most Recently Relevant to Health Maintenance Insurance BS BLUE ACCESS/TRUE BLUE PPO Care Teams Perl Software Engineer Relationship Specialty Start Date End Date Marysol Alanis MD [address] [place] [id number] PCP - General Family Practice 07/03/13
--- NOTE | 2025-02-16 22:35 | XRR_ITS ---
PROCEDURE INFORMATION: Exam: XR Right Wrist Exam date and time: 02/16/2025 10:39 PM Age: 64 years old Clinical indication: Injury or trauma; Fall; Blunt trauma (contusions or hematomas); Wrist; Right TECHNIQUE: Imaging protocol: Radiologic exam of the right wrist. Views: 3 or more views. COMPARISON: No relevant prior studies available. FINDINGS: Bones/joints: Impacted slightly dorsally angulated distal radius fracture, likely comminuted. Probable fracture of ulnar styloid, laterally displaced. Soft tissues: Normal. XR/XR wrist RT min 3V* [id number] IMPRESSION: Impacted slightly dorsally angulated distal radius fracture, likely comminuted. Probable fracture of ulnar styloid, laterally displaced.
--- NOTE | 2025-02-16 22:49 | W.ED.EXTPRO ---
HPI - Extremity Problem General: Chief complaint: Extremity Injury, Upper Stated complaint: Fell on RT wrist Time Seen by Provider: 02/16/25 22:36 History of Present Illness: Patient is a 64-year-old female with history of hypertension, was at a playground tonight, stepped on a step, then to pee gravel, and it was dark, and tripped over something on the ground, fell forward hitting right wrist as it was extended. This occurred just prior to arrival. Patient has pain and inability to use her right wrist. She is right-handed. She denies any other symptoms other than slipping on something on the ground she could not see. No nausea or vomiting. She states that she has a side effect of hydrocodone with hallucinations, however can take the medication and is not allergic. Associated symptoms: Deny chest pain or fever(s) Related Data Home Medications ?Medication ?Instructions ?Recorded ?Confirmed apple cider vinegar 300 mg tablet 300 mg PO DAILY 02/22/24 12/15/24 ascorbic acid (vitamin C) 1,000 mg 1 g PO DAILY 02/22/24 12/15/24 capsule multivitamin 1 tab PO DAILY 02/22/24 12/15/24 omeprazole 20 mg capsule,delayed 20 mg PO DAILY 02/22/24 12/15/24 release triamterene 37.5 1 tab PO DAILY 02/22/24 12/15/24 mg-hydrochlorothiazide 25 mg tablet prednisone 10 mg tablet See Rx Instructions .Route .COMPLEX 12/15/24 12/15/24 Previous Rx's ?Medication ?Instructions ?Recorded cyclobenzaprine 10 mg tablet 10 mg PO Q8H #10 tabs 12/15/24 ketorolac 10 mg tablet 10 mg PO TID PRN pain #10 tabs 12/15/24 ondansetron 4 mg disintegrating 4 mg PO Q8H PRN nausea and 02/16/25 tablet vomiting 4 days #14 tabs hydrocodone 5 mg-acetaminophen 325 1 tab PO Q6H pain #14 tabs 02/17/25 mg tablet Allergies Allergy/AdvReac Type Severity Reaction Status Date / Time codeine Allergy ADR-Halluci Verified 02/16/25 22:29 nating hydrocodone Allergy Unknown Verified 04/02/24 09:24 morphine Allergy ADR-Halluci Verified 04/02/24 09:24 nating guaiacsulfonate Allergy ADR-Halluci Uncoded 04/02/24 09:24 nating Review of Systems General: Reports: 10 or more systems reviewed and unremarkable except in HPI and below Const: Denies: fever(s) or chills Card: Denies: chest pain or palpitations Resp: Denies: dyspnea or non-productive cough GI: Denies: abdominal pain, nausea or vomiting : Denies: flank pain or difficulty voiding Musc: Reports: extremity pain, extremity swelling, joint pain and joint swelling Neuro: Denies: headache(s) or numbness in extremities PFSH ED PFSH: Social History Smoking and tobacco/nicotine status: never used tobacco/nicotine Alcohol intake: never Physical Exam Const: COMMON NORMALS: no acute distress, average body habitus, patient oriented x3 and no limitations HENMT: COMMON NORMALS: normocephalic and atraumatic HEAD & SCALP: normocephalic and atraumatic Chest: COMMONS NORMALS: normal inspection of the chest and normal palpation of entire chest wall Resp: COMMON NORMALS: normal respiratory effort, No retractions and clear to auscultation bilaterally AUSCULTATION: clear to auscultation bilaterally Cardio: COMMON NORMALS: regular rate and regular rhythm RATE: regular rate RHYTHM: regular rhythm GI: COMMON NORMALS: Normal to inspection, nondistended, normoactive bowel sounds present, Soft to palpation and non-tender PALPATION: Yes Soft to palpation : COMMON NORMALS: Yes no CVA tenderness BLADDER/KIDNEY EXAM: Yes no CVA tenderness Back/Pelvis: COMMON NORMALS: no CVA tenderness Extremity: COMMON NORMALS: capillary refill normal RIGHT UPPER EXTREMITY: Yes wrist Right wrist: Yes inspection (held against self), Yes palpation (pulses present on right radial, snuffbox tenderness) and Yes ROM (decreased due to pain) Neuro: COMMON NORMALS: patient oriented x3 Course Vital Signs: Vital signs: Vital Signs Temperature 97.6 F 02/16/25 22:24 Pulse Rate 88 02/17/25 00:54 Respiratory Rate 16 02/16/25 22:24 Blood Pressure 159/80 02/17/25 00:54 Pulse Oximetry 97 02/17/25 00:54 Oxygen Delivery Me thod Room Air 02/16/25 22:24 MDM - Extremity (Nontraumatic) Medical Decision Making Patient is 64-year-old female that tripped, right outstretched hand, and has fracture most likely distal ulna and radius. This does have good alignment. No reduction was done. Patient was placed in a sugar-tong splint, arm sling, and will follow-up with orthopedist. Discussed the case as well with supervising physician, that agrees without reduction. Lab Data Radiology Impressions Wrist X-Ray 02/16/25 22:35 IMPRESSION: Impacted slightly dorsally angulated distal radius fracture, likely comminuted. Probable fracture of ulnar styloid, laterally displaced. All radiology interpretation(s) finalized by discharge Discharge Plan Discharge Patient Disposition: Home Clinical Impression: Closed fracture distal radius and ulna Qualifiers: Encounter type: initial encounter Laterality: right Qualified Code(s): S52.501A - Unspecified fracture of the lower end of right radius, initial encounter for closed fracture Condition: Stable Prescriptions: New ondansetron 4 mg tablet,disintegrating 4 mg PO Q8H PRN (Reason: nausea and vomiting) 4 Days Qty: 14 0RF hydrocodone-acetaminophen 5-325 mg tablet 1 tab PO Q6H Qty: 14 0RF No Action triamterene-hydrochlorothiazid 37.5-25 mg tablet 1 tab PO DAILY omeprazole 20 mg capsule,delayed release(DR/EC) 20 mg PO DAILY ascorbic acid (vitamin C) 1,000 mg capsule 1 g PO DAILY multivitamin Tablet 1 tab PO DAILY apple cider vinegar 300 mg tablet 300 mg PO DAILY ketorolac 10 mg tablet 10 mg PO TID PRN (Reason: pain) Qty: 10 0RF cyclobenzaprine 10 mg tablet 10 mg PO Q8H Qty: 10 0RF prednisone 10 mg tablet See Rx Instructions .ROUTE .COMPLEX Rx Instructions: TAKE 2 TABLETS BY MOUTH ONCE DAILY FOR 4 DAYS AND 1 ONCE DAILY FOR 4 DAYS. Discharge Orders: Discharge ED (Routine); Ordered 02/16/25 Ordered By: Naila Razo Referrals: David Galicia DO [Physician, Orthopedics] Discharge Diet: Usual diet Discharge Activity: Limit activity as instructed Patient Instructions: Wrist Fracture in Adults (ED), Opioid Safety, Pain Management, Patient Portal & Gus Instructions Activity Restrictions/Additional Instructions: Follow-up with Dr. Galicia. Call tomorrow for appointment next week. Caution on sedation and pain medication. You may utilize Tylenol and ibuprofen together to help control pain. Return to ED for worsening pain, fever greater 100.4 ?F, redness. Print Language: Irish Coding Level of Care Code ED Silk Spotter for Leila Dye
[2025-02-17] MEDS: ondansetron hcl ODT 4 mg Tab PO (00:12)
[2025-02-17] MEDS: HYDROcodone-acetaminophen 5-325 mg Tablet 1 TAB PO (00:13)
[2025-02-17 00:54] VITALS: BP 159/80; PULSE 88; O2SAT 97
== END 2025-02-17 00:55 | disposition home or self-care (01) ==
PROVIDERS: Emergency Provider Physician Assistant
DX: S52.501A Unspecified fracture of the lower end of right radius, initial encounter for closed fracture (principal); W01.0XXA Fall on same level from slipping, tripping and stumbling without subsequent striking against object, initial encounter
CPT/HCPCS: 29125; 73110; 99283; A4565; J9999; Q0162

== ENCOUNTER → 2025-02-24 13:22 | Outpatient (BNVA) | payer BC, SELFPAY | PROVIDERS: Visit Provider Orthopaedic Surgery | DX: S52.501A Unspecified fracture of the lower end of right radius, initial encounter for closed fracture (principal); W19.XXXA Unspecified fall, initial encounter | CPT/HCPCS: 73110 ==

== ENCOUNTER 2025-02-24 14:12 | Outpatient (CLI) | payer BC, SELFPAY ==
[2025-02-24 15:42] LABS: Glucose Urine UA Negative (Normal); Nitrate Urine Negative (Negative); Specific Gravity, Urine 1.012 (1.005-1.030)
[2025-02-24 15:48] LABS: Add Urine Microscopic? YES
[2025-02-24 15:57] LABS: Hematocrit 43.6 % (36-47); Hemoglobin 14.30 g/dL (11.27-16.99); Mean Corpuscular HGB Conc 32.8 g/dL (30-55); Mean Corpuscular Hemoglobin 28.4 pg (27-33); Mean Corpuscular Volume 86.7 fl (85-98); Nucleated Red Blood Cells % 0 %; Platelet Count 231 10^3/cmm (157-399); Red Blood Count 5.03 10^6/uL (3.85-5.65); White Blood Count 5.47 10^3/uL (3.29-11.43)
[2025-02-24 16:39] LABS: Alanine Aminotransferase 32 U/L (0-33); Albumin Level 4.7 g/dL (3.5-5.2); Alkaline Phosphatase 93 U/L (35-105); Anion Gap 14.3 (5-19); Aspartate Amino Transferase 29 U/L (0-32); Blood Urea Nitrogen 14 mg/dL (8-23); Calcium 10.8 mg/dL (8.5-10.5); Carbon Dioxide 26 mmol/L (22-29); Chloride 99 mmol/L (98-107); Globulin 2.6 g/dL (1.3-4.6); Glucose 81 mg/dL (65-115); Osmolality Calculated 282 mOsm/kg (285-295); Potassium 3.3 mmol/L (3.5-5.1); Sodium 136 mmol/L (136-145); Total Protein 7.3 g/dL (6.6-8.7)
== END 2025-02-24 14:13 | disposition home or self-care (01) ==
LOC: SPT 14:12
PROVIDERS: Visit Provider Orthopaedic Surgery
DX: Z46.89 Encounter for fitting and adjustment of other specified devices (principal); S52.591D Other fractures of lower end of right radius, subsequent encounter for closed fracture with routine healing; X58.XXXD Exposure to other specified factors, subsequent encounter
CPT/HCPCS: 36415; 80053; 81001; 85025; L3908

== ENCOUNTER 2025-02-27 08:38 | Day surgery (SDC) | payer BC, SELFPAY ==
[2025-02-27] VITALS (9 sets, daily range): BP systolic 127–153; BP diastolic 67–102; PULSE 72–91; RESP 13–20; TEMP 36.2–37; O2SAT 92–98; BMI 31.8
--- NOTE | 2025-02-27 10:23 | ANES.PREANE2 ---
Pre-Anesthetic Assessment Height/Weight: Height 1.6 m Weight 81.647 kg Temp Pulse Resp BP Pulse Ox O2 Del Method 98.6 F 76 18 146/102 93 Room Air 02/27/25 08:58 02/27/25 08:58 02/27/25 08:58 02/27/25 08:58 02/27/25 08:58 02/27/25 09:01 Preop Diagnosis: Right distal radius fracture Operation Date: 02/27/25 10:10 Proposed Procedures p ORIF Distal Radius(Right) - David Galicia DO Familial anesthetic complications: None Was Beta Aubrey taken within 24 hours: N/A Was Clonidine taken within 24 hours: N/A Last intake: Intake Last Liquid Date 02/27/25 Last Liquid Time 23:30 Last Solid Date 02/26/25 Last Solid Time 23:00 Social No alcohol and No tobacco Exam alert, oriented x 3, clear to auscultation bilaterally and regular rate & rhythm Airway Mallampati: Class II Dentition: full CV/HEM Hypertension Anesthetic Plan ASA status: 2 Anesthesia: General and Regional (specify below) Risk of > 500 ml blood loss (7ml/kg in children): No Medications/Allergies Home Medications ?Medication ?Instructions ?Recorded ?Confirmed ?Last Taken ?Type apple cider vinegar 300 mg tablet 300 mg PO DAILY 02/22/24 02/26/25 02/26/25 History ascorbic acid (vitamin C) 1,000 mg 1 g PO DAILY 02/22/24 02/26/25 02/26/25 History capsule multivitamin 1 tab PO DAILY 02/22/24 02/26/25 02/26/25 History omeprazole 20 mg capsule,delayed 20 mg PO DAILY 02/22/24 02/26/25 02/26/25 History release triamterene 37.5 1 tab PO DAILY 02/22/24 02/26/25 02/26/25 History mg-hydrochlorothiazide 25 mg tablet cyclobenzaprine 10 mg tablet 10 mg PO Q8H #10 tabs 12/15/24 02/26/25 02/26/25 Rx ketorolac 10 mg tablet 10 mg PO TID PRN pain #10 tabs 12/15/24 02/27/25 Unknown Rx hydrocodone 5 mg-acetaminophen 325 1 tab PO Q6H pain #14 tabs 0802/26/25 02/26/25 Rx mg tablet Allergies Allergy/AdvReac Type Severity Reaction Status Date / Time codeine Allergy ADR-Halluci Verified 02/27/25 09:13 nating hydrocodone Allergy Unknown Verified 02/27/25 09:13 morphine Allergy ADR-Halluci Verified 02/27/25 09:13 nating guaiacsulfonate Allergy ADR-Halluci Uncoded 02/27/25 09:13 nating Current Medications Generic Name Dose Route Start Last Admin Trade Name Musa PRN Reason Stop Dose Admin Sodium Chloride 1,000 mls @ 30 mls/hr 02/27/25 09:00 02/27/25 09:07 Sodium Chloride 0.9% IV 02/28/25 08:59 30 mls/hr .Q24H RADHA Administration PFSH Anesthesia Social History Smoking and tobacco/nicotine status: never used tobacco/nicotine Alcohol intake: never Anesthesia Procedures Nerve Block Nerve Block 1: Main Anesthesia: general anesthesia Time Out Performed: Yes Consent: requested by attending/covering physician, from patient, from other, risks and benefits reviewed and patient agrees to proceed Nerve block location: axillary (R) Anesthesia monitors applied: pulse oximetry, EKG, BP cuff and oxygen Anesthetic Used: ropivicaine 0.5% (25 ml) and with decadron (4 mg) Ultrasound used to: recognize landmarks and visualize and ID brachial plexus Nerve Stimulator Used?: No Interscalene/Femoral BLK: 2 stimuplex 22 g needle used for position and inplane approach, visualize local anesthetic spread and no vascular puncture identified Injection: neg aspiration of heme Patient Tolerated Procedure: well Complications: none
--- NOTE | 2025-02-27 11:12 | W.PM.OPSUD ---
Surgery/Procedure H&P Update DATE OF PROCEDURE: February 27, 2025 DATE H&P PERFORMED: 02/24/25 H&P UPDATE INFORMATION: I have reviewed H&P completed within last 30 days, I have examined patient prior to procedure and No changes to prior documentation PREOP DIAGNOSIS: Right distal radius fracture PLANNED PROCEDURE: Operation Date: 02/27/25 10:10 Proposed Procedures p ORIF Distal Radius(Right) - David Galicia DO
[2025-02-27] MEDS: ceFAZolin 2,000 mg SDV 2000 MG IVP (11:34)
--- NOTE | 2025-02-27 12:41 | XR_ITS ---
WS: [id number] Right wrist, C-arm fluoroscopy views, 02/27/2025 Clinical Data: OR PICS Comparison: Right wrist, 02/24/2025 Findings: Dr. Galicia placed a dorsal plate with screws to reduce the distal right radial fracture. XR/XR wrist RT min 3V* [id number] Impression: Internal fixation of distal right radial fracture.
--- NOTE | 2025-02-27 12:57 | P.OP_ITS ---
Operative Report Date of procedure: February 27, 2025 Pre-op diagnosis: Right distal radius fracture Post-op diagnosis: same Procedure done: Open reduction internal fixation of right distal radius fracture Surgeon: David Galicia DO Estimated blood loss (mL): 5 Procedure: Open reduction internal fixation of right distal radius fracture Patient is brought to the operative suite after undergoing anesthesia patient was placed in the supine position. All areas of patient well-padded. Patient's prepped draped in Roso fashion. Incision was made over the volar wrist. The FCR tendon is identified and the interval between FCR and radial artery were made the pronator was taken ulnarly. Fracture was identified using a [place] the fracture was reduced. A Arthrex volar plate was then placed 4 screws were placed distally into the fracture fragment and then the fracture was reduced to get better volar tilt. Cortical screw was placed to suck the plate down to the bone and reduced fracture. And a proximal locking screw was used proximal to this fracture hole. Tube was replaced in the shaft. Wounds were irrigated AP lateral fluoroscopy showed the fracture and hardware in good position. Wound was then closed in a layered fashion with 2-0 Vicryl and Monocryl suture. Sterile dressings were applied and patient was transferred after placed in a volar splint to the PACU in stable condition.
--- NOTE | 2025-02-27 14:00 | ANE.PACU2 ---
Inpatient post-anesthesia follow up: Airway intact: Yes Vital signs: Temperature 97.2 F Pulse Rate 91 Respiratory Rate 16 Blood Pressure 153/85 Pulse Oximetry 95 Oxygen Delivery Me thod Room Air Oxygen Flow Rate 6 Fraction of Inspir ed Oxygen Hydration adequate: Yes Nausea and vomiting: No Pain level: 1 Mental status: Baseline
== END 2025-02-27 14:00 | disposition home or self-care (01) ==
PROVIDERS: PCP Family Medicine; Visit Provider Orthopaedic Surgery
PROC: (CPT 25607; principal; 2025-02-27 10:00)
DX: S52.501A Unspecified fracture of the lower end of right radius, initial encounter for closed fracture (principal); X58.XXXA Exposure to other specified factors, initial encounter; I10 Essential (primary) hypertension; K21.9 Gastro-esophageal reflux disease without esophagitis
CPT/HCPCS: 25607; 73110; 76000; C1713; J0690; J1100; J2250; J2405; J2704; J2795; J3010; J7030

== ENCOUNTER → 2025-03-12 08:24 | Outpatient (BNVA) | payer BC, SELFPAY | PROVIDERS: PCP Nurse Practitioner Family; Visit Provider Orthopaedic Surgery | DX: Z98.890 Other specified postprocedural states (principal); Z48.89 Encounter for other specified surgical aftercare | CPT/HCPCS: 73110 ==

== ENCOUNTER → 2025-04-09 08:28 | Outpatient (BNVA) | payer BC, SELFPAY | PROVIDERS: PCP Nurse Practitioner Family; Visit Provider Orthopaedic Surgery | DX: Z98.890 Other specified postprocedural states (principal) | CPT/HCPCS: 73110 ==

== ENCOUNTER 2025-04-09 09:46 | Outpatient (CLI) | payer BC, SELFPAY | END 2025-04-09 09:47 | disposition home or self-care (01) | LOC: SPT 09:47 | PROVIDERS: PCP Nurse Practitioner Family; Visit Provider Orthopaedic Surgery | DX: Z47.89 Encounter for other orthopedic aftercare (principal); Z98.890 Other specified postprocedural states | CPT/HCPCS: L3908 ==

== ENCOUNTER 2025-04-14 08:52 | Outpatient (RCR) | payer BC, SELFPAY | END 2025-04-14 23:59 | disposition home or self-care (01) | LOC: SOT 08:52 | PROVIDERS: Visit Provider Orthopaedic Surgery | DX: S52.501A Unspecified fracture of the lower end of right radius, initial encounter for closed fracture (principal); X58.XXXA Exposure to other specified factors, initial encounter | CPT/HCPCS: 97167 ==

== ENCOUNTER 2025-04-15 05:00 | Outpatient (RCR) | payer BC, SELFPAY | END 2025-05-15 23:59 | disposition home or self-care (01) | LOC: SOT 05:00 | PROVIDERS: PCP Nurse Practitioner Family; Visit Provider Orthopaedic Surgery | DX: S52.501A Unspecified fracture of the lower end of right radius, initial encounter for closed fracture (principal); X58.XXXA Exposure to other specified factors, initial encounter | CPT/HCPCS: 97022; 97110; 97140 ==

== ENCOUNTER 2025-04-15 07:50 | Outpatient (CLI) | payer BC, SELFPAY ==
--- NOTE | 2025-04-15 07:55 | MM_ITS ---
WS: [id number] SCREENING DIGITAL BREAST TOMOSYNTHESIS MAMMOGRAM WITH CAD HISTORY: SCREENING COMPARISON: 12/24/2023, 12/13/2022, 04/14/2019 Bilateral CC and MLO with tomosynthesis and synthetic mammography submitted. Computer aided detection analyzed. Breast composition: There are scattered areas of fibroglandular density. Increasing asymmetry in the upper outer quadrant of the RIGHT breast at a posterior depth. Asymmetry continues to increase slowly over time. This is probably normal fibroglandular density. There is no distortion. There is a biopsy clip adjacent to this asymmetry that has been present on prior studies. MM/MM scr BI tomosynthesis [id number] IMPRESSION: BI-RADS: 0 - Incomplete: Need additional imaging evaluation. FOLLOW UP: Need Additional Imaging RIGHT breast: Spot compression views (CC and MLO). True ML. Ultrasound to follo w if abnormality persists.
== END 2025-04-15 07:51 | disposition home or self-care (01) ==
LOC: RAD 07:50
PROVIDERS: PCP Nurse Practitioner Family; Visit Provider Nurse Practitioner Family
DX: Z12.31 Encounter for screening mammogram for malignant neoplasm of breast (principal); R92.323 Mammographic fibroglandular density, bilateral breasts; R92.8 Other abnormal and inconclusive findings on diagnostic imaging of breast; Z96.89 Presence of other specified functional implants
CPT/HCPCS: 77063; 77067

== ENCOUNTER 2025-05-12 08:14 | Outpatient (CLI) | payer BC, SELFPAY ==
--- NOTE | 2025-05-12 08:20 | MM_ITS ---
WS: [id number] ADDITIONAL VIEWS RIGHT MAMMOGRAM WITH DIGITAL BREAST TOMOSYNTHESIS. RIGHT BREAST ULTRASOUND HISTORY: ABNORMAL MAMMOGRAM COMPARISON: 04/15/2025, 12/24/2023, 12/13/2022 RIGHT MAMMOGRAM: Spot compression views and true ML with digital breast tomosynthesis and SM. Breast composition: There are scattered areas of fibroglandular density. Asymmetry persists but becomes less dense in the upper outer quadrant with additional views. No distortion. There is a biopsy clip present. Ultrasound to follow. RIGHT BREAST ULTRASOUND 2-D and color Doppler imaging submitted. No persistent abnormality in the upper outer quadrant of the RIGHT breast. There is no shadowing, cystic or solid mass. MM/MM diag RT tomosynthesis [id number] IMPRESSION: BI-RADS: 2 - Benign. FOLLOW UP: 1 Year Follow-up No persistent abnormality in the RIGHT breast. Return to annual screening mammo graphy.
== END 2025-05-12 08:15 | disposition home or self-care (01) ==
LOC: RAD 08:15
PROVIDERS: PCP Nurse Practitioner Family; Visit Provider Nurse Practitioner Family
DX: R92.8 Other abnormal and inconclusive findings on diagnostic imaging of breast (principal); R92.323 Mammographic fibroglandular density, bilateral breasts; N64.89 Other specified disorders of breast
CPT/HCPCS: 76642; 77061; G0279

== ENCOUNTER 2025-05-16 05:00 | Outpatient (RCR) | payer BC, SELFPAY | END 2025-06-14 23:59 | disposition home or self-care (01) | LOC: SOT 05:00 | PROVIDERS: PCP Nurse Practitioner Family; Visit Provider Orthopaedic Surgery | DX: S52.501A Unspecified fracture of the lower end of right radius, initial encounter for closed fracture (principal); X58.XXXA Exposure to other specified factors, initial encounter | CPT/HCPCS: 97022; 97110 ==

== ENCOUNTER → 2025-06-02 07:53 | Outpatient (BNVA) | payer BC, SELFPAY | PROVIDERS: PCP Nurse Practitioner Family; Visit Provider Orthopaedic Surgery | DX: Z98.890 Other specified postprocedural states (principal); Z48.89 Encounter for other specified surgical aftercare | CPT/HCPCS: 73110 ==